=== PATIENT | male | born 1985 | race African-American/Black ===

== ENCOUNTER 2016-10-14 19:10 | Emergency (ER) | payer OTHER ==
[~2016-10-14] VITALS: Ht 188 cm; Wt 104.3 kg
[~2016-10-14 19:10] MED LIST: lortab elixir PO
[2016-10-14 19:11] VITALS: BP 151/90
[2016-10-14] MEDS ORDERED: MICA40TA PO (19:24)
[2016-10-14] MEDS ORDERED: FLON1SPR (19:24)
[2016-10-14] MEDS ORDERED: CHLO125TA PO (19:24)
[2016-10-14] MEDS ORDERED: ALBUTEROL SULFATE 2.5 MG/0.5 ML INH NEB SOLN INH ONE (20:00)
[2016-10-14] MEDS ORDERED: ALBU17IN2 INH (20:02)
[2016-10-14] MEDS ORDERED: TUSS1CAP5 PO (20:02)
[2016-10-14] MEDS ORDERED: TUSSICAPS ER 10/8MG CAPSULE PO ONE (20:15)
== END 2016-10-14 21:02 | disposition home or self-care (01) ==
LOC: M ED 20:30
DX: J06.9 Acute upper respiratory infection, unspecified (principal)